=== PATIENT | male | born 1990 | race Caucasian/White ===

== ENCOUNTER → 2016-11-12 | Emergency (ER) | payer SELFPAY ==
[~2016-11-12] MED LIST: LEVOFLOXACIN 250 MG TABLET (FP) ONE; LEVOFLOXACIN 250 MG TABLET (FP) PO ONE; LEVOFLOXACIN 500 MG TABLET (FP) ONE; metroNIDAZOLE 250 MG TABLET ONE; metroNIDAZOLE 250 MG TABLET PO ONE
[2016-11-12 18:07] VITALS: TEMP 98.4; BMI 27.3
--- NOTE | 2016-11-12 18:44 | PDOC ---
History of Present Illness - General History Source: Patient Exam Limitations: No Limitations - History of Present Illness Initial Comments: 11/12/16 19:01 The patient is a 25-year-old male, with a significant past medical history of diverticulitis, who presents to the ED with 4 days of abdominal pain. Pt states that he ate [employer] on Tuesday and does not usually eat it. Later that day he developed abdominal pain and gas. He states that his pain is located mostly in the right lower quadrant and a little his right upper quadrant. He does report taking mylanta and senna but with no relief of his symptoms. On exam, pt reports that he is currently experiencing constipation and just finished a two- day course of terbinafine. The patient denies any nausea or vomiting. He denies any bloody or tarry stools. <Danisha Bell - Last Filed: 11/12/16 19:00> <Karlee Davis - Last Filed: 11/12/16 21:59> - General Chief Complaint: Pain, Acute Stated Complaint: STOMACH PAIN Time Seen by Provider: 11/12/16 18:37 Past History <Danisha Bell - Last Filed: 11/12/16 19:00> - Past Medical History Other medical history: DENIES. - Psycho/Social/Smoking Cessation Hx Suicidal Ideation: No Smoking History: Current some day smoker Have you smoked in the past 12 months: No Information on smoking cessation initiated: No <aKrlee Davis - Last Filed: 11/12/16 21:59> - Past Medical History Allergies/Adverse Reactions: Allergies Allergy/AdvReac Type Severity Reaction Status Date / Time No Known Allergies Allergy Verified 11/12/16 18:03 Home Medications: Ambulatory Orders Levofloxacin [Levaquin] 750 mg PO DAILY #10 tab 11/12/16 Metronidazole [Flagyl -] 500 mg PO TID #30 tablet 11/12/16 Review of Systems - Review of Systems Able to Perform ROS?: Yes Comments:: 11/12/16 19:02 GENERAL/CONSTITUTIONAL: No fever or chills. No weakness. HEAD, EYES, EARS, NOSE AND THROAT: No change in vision. No ear pain or discharge. No sore throat. CARDIOVASCULAR: No chest pain or shortness of breath. RESPIRATORY: No cough, wheezing, or hemoptysis. GASTROINTESTINAL: +diarrhea, abdominal pain. No nausea, vomiting, diarrhea. GENITOURINARY: No dysuria, frequency, or change in urination. MUSCULOSKELETAL: No joint or muscle swelling or pain. No neck or back pain. SKIN: No rash NEUROLOGIC: No headache, vertigo, loss of consciousness, or change in strength/ sensation. ENDOCRINE: No increased thirst. No abnormal weight change. HEMATOLOGIC/LYMPHATIC: No anemia, easy bleeding, or history of blood clots. ALLERGIC/IMMUNOLOGIC: No hives or skin allergy. <Danisha Bell - Last Filed: 11/12/16 19:00> *Physical Exam - Vital Signs Last Vital Signs Temp Pulse Resp BP Pulse Ox 98.4 F 75 19 108/65 98 11/12/16 18:03 11/12/16 18:03 11/12/16 18:03 11/12/16 18:03 11/12/16 18:03 <Danisha Bell - Last Filed: 11/12/16 19:00> - Vital Signs Last Vital Signs Temp Pulse Resp BP Pulse Ox 98.4 F 75 19 108/65 98 11/12/16 18:03 11/12/16 18:03 11/12/16 18:03 11/12/16 18:03 11/12/16 18:03 - Physical Exam Comments: GENERAL: Awake, alert, and fully oriented, in no acute distress HEAD: No signs of trauma EYES: PERRLA, EOMI, sclera anicteric, conjunctiva clear ENT: Auricles normal inspection, hearing grossly normal, nares patent, oropharynx clear without exudates. Moist mucosa NECK: Normal ROM, supple, no lymphadenopathy, JVD, or masses LUNGS: Breath sounds equal, clear to auscultation bilaterally. No wheezes, and no crackles HEART: Regular rate and rhythm, normal S1 and S2, no murmurs, rubs or gallops ABDOMEN: Soft, +RLQ tenderness with guarding, no rebound, normoactive bowel sounds. No masses EXTREMITIES: Normal range of motion, no edema. No clubbing or cyanosis. No cords, erythema, or tenderness NEUROLOGICAL: Cranial nerves II through XII grossly intact. Normal speech, normal gait SKIN: Warm, Dry, normal turgor, no rashes or lesions noted. <Karlee Davis - Last Filed: 11/12/16 21:59> ED Treatment Course - LABORATORY CBC & Chemistry Diagram: 11/12/16 19:54 11/12/16 19:54 <Karlee Davis - Last Filed: 11/12/16 21:59> Medical Decision Making - Medical Decision Making CT results reviewed- colitis vs diverticulitis. Will treat with abx based on prior history. Tolerating PO, stable for DC home. <Karlee Davis - Last Filed: 11/12/16 21:59> *DC/Admit/Observation/Transfer - Attestations Scribe Attestion: 11/12/16 19:03 Documentation prepared by Danisha Bell, acting as medical chemist for Karlee Davis MD. <Danisha Bell - Last Filed: 11/12/16 19:00> - Discharge Dispostion Admit: No <Karlee Davis - Last Filed: 11/12/16 21:59> Diagnosis at time of Disposition: Colitis - Discharge Dispostion Disposition: HOME Condition at time of disposition: Stable - Prescriptions Prescriptions: Metronidazole [Flagyl -] 500 mg PO TID #30 tablet Levofloxacin [Levaquin] 750 mg PO DAILY #10 tab - Patient Instructions Printed Discharge Instructions: DI for Diverticulitis, DI for Colitis
[2016-11-12 19:07] LABS: URINE APPEARANCE CLEAR; URINE BILIRUBIN NEGATIVE (NEGATIVE); URINE BLOOD 1+ (NEGATIVE); URINE COLOR YELLOW; URINE GLUCOSE (UA) NEGATIVE (NEGATIVE); URINE KETONE TRACE (NEGATIVE); URINE LEUK ESTERASE NEGATIVE (NEGATIVE); URINE NITRITE NEGATIVE (NEGATIVE); URINE UROBILINOGEN NEGATIVE mg/dL (0.2-1.0)
[2016-11-12 19:16] LABS: URINE PROTEIN 1+ (NEGATIVE)
[2016-11-12 19:18] LABS: URINE BACTERIA RARE /hpf (NONE SEEN); URINE MUCUS FEW; URINE RBC 7 /hpf (0-3); URINE WBC 8 /hpf (3-5)
[2016-11-12 20:02] LABS: BASOPHIL 0.5 % (0-2.0); EOSINOPHIL 1.4 % (0-4.5); MCH 28.6 pg (25.7-33.7); MCHC 33.4 g/dl (32.0-35.9); MEAN CELL VOLUME 85.5 fl (80-96); MEAN PLT VOLUME 7.8 fl (7.5-11.1); NEUTROPHILS 70.6 % (42.8-82.8); PLATELET COUNT 281 K/MM3 (134-434); RDW 12.5 % (11.9-15.9); WHITE BLOOD COUNT 10.2 K/mm3 (4.0-10.0)
[2016-11-12 20:23] LABS: INR 1.14 (0.82-1.09); PROTHROMBIN TIME (PATIENT) 12.6 SEC (9.98-11.88)
[2016-11-12 20:34] LABS: ALK PHOS 105 U/L (45-117); ANION GAP 8 (8-16); CALCIUM 9.4 mg/dL (8.5-10.1); CO2 28 mmol/L (21-32); CREATININE 0.9 mg/dL (0.7-1.3); GLUCOSE,RANDOM 84 mg/dL (74-106); SGOT/AST 17 U/L (15-37); SGPT/ALT 33 U/L (12-78); TOT PROT 7.5 g/dl (6.4-8.2)
[2016-11-12 21:36] VITALS: BP 122/80; PULSE 67
== END | disposition home or self-care (01) ==
LOC: JER 17:58
DX: K52.9 Noninfective gastroenteritis and colitis, unspecified (principal); F17.210 Nicotine dependence, cigarettes, uncomplicated; Z87.19 Personal history of other diseases of the digestive system
CPT/HCPCS: 36415; 74177-TC; 80053; 81003; 81015; 85025; 85610; 99283-25

== ENCOUNTER 2017-12-27 22:54 | Emergency (ER) | payer SELFPAY ==
[2017-12-27 23:06] VITALS: BP 130/80; PULSE 93; TEMP 98.5; BMI 27.3
[2017-12-27] MEDS ORDERED: SODIUM CHLORIDE 1,000 ML IV STA (23:44)
[2017-12-28 00:10] LABS: BASO % 0.7 % (0-2.0); EOS % 3.5 % (0-4.5); HEMATOCRIT 42.6 % (35.4-49); HEMOGLOBIN 14.6 GM/dL (11.7-16.9); LYMPH % 32.8 % (8-40); MCH 28.8 pg (25.7-33.7); MCHC 34.3 g/dl (32.0-35.9); MEAN CELL VOLUME 83.9 fl (80-96); MEAN PLT VOLUME 7.8 fl (7.5-11.1); MONO % 8.4 % (3.8-10.2); NEUT % 54.6 % (42.8-82.8); PLATELET COUNT 359 K/MM3 (134-434); RBC 5.08 M/mm3 (4.00-5.60); RDW 12.7 % (11.9-15.9); WHITE BLOOD COUNT 8.5 K/mm3 (4.0-10.0)
--- NOTE | 2017-12-28 00:31 | PDOC ---
History of Present Illness - General Chief Complaint: Pain Stated Complaint: ABD PAIN Time Seen by Provider: 12/27/17 23:04 History Source: Patient - History of Present Illness Initial Comments: 12/28/17 00:31 27 year old male c/o nausea, vomiting and RLQ pain x 2 days. denies fever/ chills. history of diverticulitis patient reports that he has been constipated. 12/28/17 00:46 Past History - Past Medical History Allergies/Adverse Reactions: Allergies Allergy/AdvReac Type Severity Reaction Status Date / Time No Known Allergies Allergy Verified 12/27/17 22:59 Home Medications: Ambulatory Orders levoFLOXacin [Levaquin] 750 mg PO DAILY #10 tab 11/12/16 metroNIDAZOLE [Flagyl -] 500 mg PO TID #30 tablet 11/12/16 levoFLOXacin [Levaquin -] 500 mg PO DAILY #10 tablet 12/28/17 metroNIDAZOLE [Flagyl -] 500 mg PO TID #30 tablet 12/28/17 COPD: No GI Disorders: Yes (Diverticulitis) - Immunization History Immunization Up to Date: Yes - Suicide/Smoking/Psychosocial Hx Smoking History: Never smoked Have you smoked in the past 12 months: No Information on smoking cessation initiated: No Hx Alcohol Use: No Drug/Substance Use Hx: No Substance Use Type: None Review of Systems - Review of Systems Able to Perform ROS?: Yes Is the patient limited Polish proficient: No ABD/GI: Yes: Constipated, Nausea, Vomiting, Abdominal cramping *Physical Exam - Vital Signs Last Vital Signs Temp Pulse Resp BP Pulse Ox 98.5 F 93 H 16 130/80 98 12/27/17 22:56 12/27/17 22:56 12/27/17 22:56 12/27/17 22:56 12/27/17 22:56 - Physical Exam General Appearance: Yes: Appropriately Dressed Cardiovascular: positive: Regular Rhythm, Regular Rate Gastrointestinal/Abdominal: positive: Normal Bowel Sounds, Tender (rlq PAIN) Extremity: positive: Normal Capillary Refill, Normal Inspection, Normal Range of Motion Integumentary: positive: Normal Color, Dry, Warm ED Treatment Course - LABORATORY CBC & Chemistry Diagram: 12/28/17 00:00 12/28/17 00:00 Progress Note - Progress Note Progress Note: A: acute diverticulitis P: CBC CMP LIpase CTAP: acute right sided diverticulitis *DC/Admit/Observation/Transfer Diagnosis at time of Disposition: Diverticulitis - Discharge Dispostion Disposition: HOME - Referrals - Patient Instructions Printed Discharge Instructions: Diverticulitis Additional Instructions: start a clear liquid diet continue Levaquin and flagyl as prescribed, follow up with gastroenterology as soon as possible. return to the ER if symptoms worsen - Post Discharge Activity Forms/Work/School Notes: Back to Work
[2017-12-28 00:33] LABS: ALK PHOS 97 U/L (45-117); ANION GAP 10 MMOL/L (8-16); BILIRUBIN,TOTAL 0.7 mg/dL (0.2-1.0); BLOOD UREA NITROGEN 10 mg/dL (7-18); CALCIUM 8.7 mg/dL (8.5-10.1); CHLORIDE 106 mmol/L (98-107); CO2 25 mmol/L (21-32); CREATININE 0.8 mg/dL (0.7-1.3); GLUCOSE,RANDOM 113 mg/dL (74-106); LIPASE 156 U/L (73-393); POTASSIUM 3.6 mmol/L (3.5-5.1); SGOT/AST 18 U/L (15-37); SGPT/ALT 37 U/L (12-78); SODIUM 141 mmol/L (136-145); TOT PROT 7.7 g/dl (6.4-8.2)
[2017-12-28 00:58] LABS: URINE APPEARANCE CLEAR; URINE BILIRUBIN NEGATIVE (<2.0 mg/dL); URINE COLOR YELLOW; URINE GLUCOSE (UA) NEGATIVE (NEGATIVE); URINE KETONE TRACE (NEGATIVE); URINE LEUK ESTERASE NEGATIVE (NEGATIVE); URINE NITRITE NEGATIVE (NEGATIVE); URINE PROTEIN NEGATIVE (NEGATIVE)
--- NOTE | 2017-12-28 11:51 | EKG ---
Test Reason : Blood Pressure : / mmHG Vent. Rate : 084 BPM Atrial Rate : 084 BPM P-R Int : 156 ms QRS Dur : 088 ms QT Int : 392 ms P-R-T Axes : 066 078 045 degrees QTc Int : 463 ms NORMAL SINUS RHYTHM NORMAL ECG NO PREVIOUS ECGS AVAILABLE Confirmed by ARIANE CHOI, HAMMAD ([id number]) on 12/28/2017 11:50:31 AM Referred By: Confirmed By:HAMMAD THAKKAR MD
== END 2017-12-28 03:10 | disposition home or self-care (01) ==
LOC: JER 22:54
PROC: 3E0337Z Introduction of Electrolytic and Water Balance Substance into Peripheral Vein, Percutaneous Approach (ICD-10-PCS; principal; 2017-12-27)
PROC: 3E03329 Introduction of Other Anti-infective into Peripheral Vein, Percutaneous Approach (ICD-10-PCS; 2017-12-27)
PROC: 3E03329 Introduction of Other Anti-infective into Peripheral Vein, Percutaneous Approach (ICD-10-PCS; 2017-12-27)
DX: K57.92 Diverticulitis of intestine, part unspecified, without perforation or abscess without bleeding (principal)
CPT/HCPCS: 36415; 74177-TC; 80053; 81003; 83690; 85025; 93005; 93010; 99282-25; J7030

== ENCOUNTER 2019-05-17 21:15 | Emergency (ER) | payer SELFPAY ==
[2019-05-17 21:24] VITALS: TEMP 97.8; BMI 27.2
--- NOTE | 2019-05-17 21:24 | PDOC ---
Rapid Medical Evaluation Time Seen by Provider: 05/17/19 21:20 Medical Evaluation: Allergies Allergy/AdvReac Type Severity Reaction Status Date / Time No Known Allergies Allergy Verified 05/17/19 21:20 05/17/19 21:20 CC: palpitations and feeling nervous Pt is a 28 y/o male who presents to the ED with complaint of his heart beating really fast and he thinks he's having an anxiety attack. He has not history of anxiety. Brief exam: Anxious appearing, tears in his eyes, not tachycardic, O2 sat is 100 % Orders: ekg To ED for further evaluation Discharge Disposition - Diagnosis Palpitations - Referrals - Patient Instructions - Post Discharge Activity
[2019-05-17 23:27] LABS: BASO % 0.6 % (0-2.0); EOS % 1.3 % (0-4.5); HEMOGLOBIN 14.1 GM/dL (11.7-16.9); LYMPH % 22.7 % (8-40); MCH 28.8 pg (25.7-33.7); MCHC 34.3 g/dl (32.0-35.9); MEAN CELL VOLUME 83.8 fl (80-96); MEAN PLT VOLUME 7.9 fl (7.5-11.1); MONO % 7.4 % (3.8-10.2); PLATELET COUNT 338 K/MM3 (134-434); RBC 4.89 M/mm3 (4.00-5.60); RDW 12.2 % (11.9-15.9); WHITE BLOOD COUNT 8.9 K/mm3 (4.0-10.0)
[2019-05-17 23:55] LABS: ALBUMIN 4.1 g/dl (3.4-5.0); ALK PHOS 83 U/L (45-117); ANION GAP 6 MMOL/L (8-16); BILIRUBIN,TOTAL 0.5 mg/dL (0.2-1); BLOOD UREA NITROGEN 10.5 mg/dL (7-18); CALCIUM 9.3 mg/dL (8.5-10.1); CHLORIDE 104 mmol/L (98-107); CO2 28 mmol/L (21-32); CREATININE 0.8 mg/dL (0.55-1.3); GLUCOSE,RANDOM 104 mg/dL (74-106); POTASSIUM 3.9 mmol/L (3.5-5.1); SGOT/AST 19 U/L (15-37); SGPT/ALT 38 U/L (13-61); SODIUM 138 mmol/L (136-145); TOT PROT 7.3 g/dl (6.4-8.2)
--- NOTE | 2019-05-18 01:30 | PDOC ---
History of Present Illness - General Chief Complaint: Psychiatric Stated Complaint: DIFFICULTY BREATHING Time Seen by Provider: 05/17/19 21:20 History Source: Patient Exam Limitations: No Limitations - History of Present Illness Initial Comments: 05/18/19 01:23 HISTORY OF PRESENT ILLNESS: Presents emergency department for evaluation of palpitations and shortness of breath lasting approximately 10 minutes. Patient reports he was hanging out with friends earlier today when he smoked a cigarette apart from his friend. Approximately 1 hour after smoking a cigarette he began to experience the symptoms. Patient reports he has previously had episodes of panic attacks not lasting this long nor at this severe. Patient reports his iPhone watch recorded his heart rate of 105 bpm. Patient immediately came to the emergency department for evaluation. Currently patient denies all complaints. No recent travel or sick contacts. PAST MEDICAL HISTORY: Denies past medical history SURGICAL HISTORY: Denies ALLERGIES: No known drug allergies REVIEW OF SYSTEMS General/Constitutional: Denies fever or chills. Denies weakness, weight change. HEENT: Denies change in vision. Denies ear pain or discharge. Denies sore throat. Cardiovascular: See HPI Respiratory: Denies cough, wheezing, or hemoptysis. Gastrointestinal: Denies nausea, vomiting, diarrhea or constipation. Denies rectal bleeding. Genitourinary: Denies dysuria, frequency, or change in urination. Musculoskeletal: Denies joint or muscle swelling or pain. Denies neck or back pain. Skin and breasts: Denies rash or easy bruising. Neurologic: Denies headache, vertigo, loss of consciousness, or loss of sensation. Psychiatric: Denies depression or anxiety. Endocrine: Denies increased thirst. Denies abnormal weight change. Hematologic/Lymphatic: Denies anemia, easy bleeding, or history of blood clots. Allergic/Immunologic: Denies hives or skin allergy. Denies latex allergy. PHYSICAL EXAM General Appearance: Well-appearing, appropriately dressed. No apparent distress , no intoxication. HEENT: EOMI, PERRLA, normal ENT inspection, normal voice, TMs normal, pharynx normal. No conjunctival pallor. No photophobia, scleral icterus. Neck: Supple. Trachea midline. No tenderness, rigidity, carotid bruit, stridor , lymphadenopathy, or thyromegaly. Respiratory/Chest: Lungs CTAB. No shortness of breath, chest tenderness, respiratory distress, accessory muscle use. No crackles, rales, rhonchi, stridor , wheezing, dullness Cardiovascular: RRR. S1, S2. No JVD, murmur, bradycardia, tachycardia. Vascular Pulses: Dorsalis-Pedis (R): 2+, Dorsalis-Pedis (L): 2+ Gastrointestinal/Abdominal: Normal bowel sounds. Abdomen soft, non-distended. No tenderness or rebound tenderness. No organomegaly, pulsatile mass, guarding, hernia, hepatomegaly, splenomegaly. Lymphatic: No adenopathy, tenderness. Musculoskeletal/Extremities: Normal inspection. FROM of all extremities, normal capillary refill. Pelvis Stable. No CVA tenderness. No tenderness to extremities, pedal edema, swelling, erythema or deformity. Integumentary: Appropriate color, dry, warm. No cyanosis, erythema, jaundice or rash Neurologic: humanities division chair II-XII intact. Fully oriented, alert. Appropriate mood/affect. Motor strength 5/5. No appreciable EOM palsy, facial droop or sensory deficit. 28-year-old male Past History - Past Medical History Allergies/Adverse Reactions: Allergies Allergy/AdvReac Type Severity Reaction Status Date / Time No Known Allergies Allergy Verified 05/17/19 21:20 Home Medications: Ambulatory Orders levoFLOXacin [Levaquin] 750 mg PO DAILY #10 tab 11/12/16 metroNIDAZOLE [Flagyl -] 500 mg PO TID #30 tablet 11/12/16 levoFLOXacin [Levaquin -] 500 mg PO DAILY #10 tablet 12/28/17 metroNIDAZOLE [Flagyl -] 500 mg PO TID #30 tablet 12/28/17 COPD: No GI Disorders: Yes (Diverticulitis) - Immunization History Immunization Up to Date: Yes - Psycho Social/Smoking Cessation Hx Smoking History: Never smoked Have you smoked in the past 12 months: No Information on smoking cessation initiated: No Hx Alcohol Use: No Drug/Substance Use Hx: Yes (MARIJUANA) Substance Use Type: None *Physical Exam - Vital Signs Last Vital Signs Temp Pulse Resp BP Pulse Ox 97.8 F 88 22 H 118/81 100 05/17/19 21:20 05/17/19 21:20 05/17/19 21:20 05/17/19 21:20 05/17/19 21:20 Heart Score/ECG Review - History History: Slightly suspicious - Electrocardiogram EKG: Normal - Age Age: </= 45 - Risk Factors Risk Factors Heart Score: Yes Smoking History Based on the list above the patient has:: 1-2 risk factors - Troponin Troponin: </= normal limit - Score Heart Score - Total: 1 ED Treatment Course - LABORATORY CBC & Chemistry Diagram: 05/17/19 23:05 05/17/19 23:05 - ADDITIONAL ORDERS Additional order review: Laboratory Results 05/17/19 23:05 Sodium 138 Potassium 3.9 Chloride 104 Carbon Dioxide 28 Anion Gap 6 L BUN 10.5 Creatinine 0.8 Est GFR (CKD-EPI)AfAm 142.89 Est GFR (CKD-EPI)NonAf 123.29 Random Glucose 104 Calcium 9.3 Total Bilirubin 0.5 AST 19 ALT 38 Alkaline Phosphatase 83 Creatine Kinase 122 Troponin I < 0.02 Total Protein 7.3 Albumin 4.1 05/17/19 23:05 RBC 4.89 MCV 83.8 MCHC 34.3 RDW 12.2 MPV 7.9 Neutrophils % 68.0 D Lymphocytes % 22.7 D Monocytes % 7.4 Eosinophils % 1.3 Basophils % 0.6 - RADIOLOGY Radiology Studies Ordered: Category Date Time Status CHEST PA & LAT [RAD] Stat Radiology 05/18/19 01:11 Taken Medical Decision Making - Medical Decision Making 05/18/19 01:25 A/P: 28-year-old male with palpitations and shortness of breath Normal physical exam. Differential diagnosis includes but is not limited to-ACS, anxiety, pneumonia, drug use, electrolyte abnormality, occult infection Cardiac work-up Reassess 05/18/19 01:26 EKG sinus rhythm with rate of 71. Normal intervals present with QTC 432 ms. Normal axis. No ST elevations or T wave inversions present. 05/18/19 01:27 Laboratory Tests 05/17/19 05/17/19 23:05 23:05 WBC 8.9 RBC 4.89 Hgb 14.1 Hct 41.0 MCV 83.8 MCH 28.8 MCHC 34.3 RDW 12.2 Plt Count 338 MPV 7.9 Absolute Neuts (auto) 6.0 Neutrophils % 68.0 D Lymphocytes % 22.7 D Monocytes % 7.4 Eosinophils % 1.3 Basophils % 0.6 Nucleated RBC % 0 Sodium 138 Potassium 3.9 Chloride 104 Carbon Dioxide 28 Anion Gap 6 L BUN 10.5 Creatinine 0.8 Est GFR (CKD-EPI)AfAm 142.89 Est GFR (CKD-EPI)NonAf 123.29 Random Glucose 104 Calcium 9.3 Total Bilirubin 0.5 AST 19 ALT 38 Alkaline Phosphatase 83 Creatine Kinase 122 Troponin I < 0.02 total Protein 7.3 Albumin 4.1 Chest x-ray as read by me: Angle sharp. Cardiac silhouette is within normal limits. Lung rodriguez are clear without infiltrate or consolidations. Given normal EKG, normal chest x-ray and normal laboratory testing this is likely anxiety. We will discharge patient home to follow-up with his primary doctor for continued evaluation. Patient has been given strict return precautions should he develop any chest pain, shortness of breath or palpitations again. I discussed the physical exam findings, ancillary test results and final diagnoses with the patient. I answered all of the patient's questions. The patient was satisfied with the care received and felt comfortable with the discharge plan and treatment plan. The patient will call their primary care physician within 24 hours to arrange follow-up and will return to the Emergency Department with any new, persistent or worsening symptoms. Discharge - Discharge Information Problems reviewed: Yes Clinical Impression/Diagnosis: Palpitations Condition: Fair Disposition: HOME - Admission No - Follow up/Referral - Patient Discharge Instructions Additional Instructions: Stop smoking. Keep well-hydrated. Your emergency department visit is incomplete please follow-up with your primary doctor. Return to the emergency department immediately should you develop shortness of breath, chest pain, dizziness, lightheadedness or for any other concerns. Thank you very much for choosing us to provide your emergent healthcare needs. - Post Discharge Activity
[2019-05-18 02:04] VITALS: BP 124/85; PULSE 76
--- NOTE | 2019-05-19 16:16 | EKG ---
Test Reason : Blood Pressure : / mmHG Vent. Rate : 071 BPM Atrial Rate : 071 BPM P-R Int : 152 ms QRS Dur : 096 ms QT Int : 398 ms P-R-T Axes : 065 085 063 degrees QTc Int : 432 ms NORMAL SINUS RHYTHM LEFT ATRIAL ENLARGEMENT INCOMPLETE RIGHT BUNDLE BRANCH BLOCK BORDERLINE ECG Confirmed by MD MIGUEL A, JAY JAY ([id number]) on 05/19/2019 4:15:45 PM Referred By: Confirmed By:JAY JAY GRADY MD
== END 2019-05-18 01:55 | disposition home or self-care (01) ==
LOC: JER 21:15
DX: R00.2 Palpitations (principal)
CPT/HCPCS: 36415; 71046-TC-FY; 80053; 82550; 84484; 85025; 93005; 93010; 99283-25